=== PATIENT | male | born 1970 | race Caucasian/White ===

== ENCOUNTER 2022-03-31 08:00 | Outpatient (CLI) | payer BC, OTHER ==
--- NOTE | 2022-03-31 15:04 | XRAY Report ---
PROCEDURE: Ribs w/PA Chest LT INDICATIONS: LEFT SIDED RIB PAIN TECHNIQUE: 2 views of the right ribs were acquired, along with a single view chest. COMPARISON: None FINDINGS: Surgical changes and devices: None. Bones and chest wall: Mildly displaced fractures of the right posterior lateral second, third, and fo urth ribs. No suspicious bony lesions. Overlying soft tissues appear unremarkable. Lungs and pleura: No pleural effusions or pneumothorax. Lungs appear clear. Mediastinum: Mediastinal contours appear normal. Heart size is normal. IMPRESSION: Right rib fractures. Reviewed by: Apolonia Colmenares MD on 03/31/2022 3:02 PM PDT Approved by: Apolonia Colmenares MD on 03/31/2022 3:02 PM PDT Station ID: [id number]
== END 2022-03-31 23:59 | disposition home or self-care (01) ==
LOC: DI.S 08:00
PROVIDERS: ATTEND Physician Assistant
DX: S22.41XA Multiple fractures of ribs, right side, initial encounter for closed fracture (principal)

== ENCOUNTER 2022-08-30 08:00 | Outpatient (CLI) | payer MEDICAID, OTHER ==
--- NOTE | 2022-08-30 20:22 | XRAY Report ---
PROCEDURE: Forearm LT INDICATIONS: LEFT FOREARM INJURY TECHNIQUE: 2 views of the forearm were acquired. COMPARISON: None. FINDINGS: Bones: There is a minimally displaced fracture seen involving the distal ulna dorsally, which is best seen on the lateral image. No significant abnormality of the radius can be seen. An enthesophyte can be seen along the posterior olecranon. Soft tissues: No suspicious soft tissue calcifications or masses. IMPRESSION: Minimally displaced fracture seen involving the distal ulna. Please correlate with patient history an d focal tenderness. Reviewed by: Twin Spicer MD on 08/30/2022 7:21 PM [facility] Approved by: Twin Spicer MD on 08/30/2022 7:21 PM [facility] Station ID: [id number]
== END 2022-08-30 23:59 | disposition home or self-care (01) ==
LOC: DI.S 08:00
PROVIDERS: ATTEND Emergency Medicine
DX: S52.602A Unspecified fracture of lower end of left ulna, initial encounter for closed fracture (principal)

== ENCOUNTER 2023-01-06 07:00 | Outpatient (CLI) | payer MEDICAID ==
--- NOTE | 2023-01-06 16:30 | XRAY Report ---
PROCEDURE: Wrist 4 View LT INDICATIONS: UNSPECIFIED FRACTURE OF LEFT ULNA TECHNIQUE: 4 views of the wrist were acquired. COMPARISON: 08/30/2022 FINDINGS: Bones: There is a subacute/chronic appearing mildly displaced fracture of the ulnar styloid, which i maging is increased displacement. Scaphoid view: No scaphoid fracture. Soft tissues: No suspicious soft tissue calcifications or masses. IMPRESSION: Increased displacement of distal ulnar fracture. Reviewed by: Apolonia Colmenares MD on 01/06/2023 4:29 PM PDT Approved by: Apolonia Colmenares MD on 01/06/2023 4:29 PM PDT Station ID: [id number]
== END 2023-01-06 23:59 | disposition home or self-care (01) ==
LOC: DI.S 07:00
PROVIDERS: ATTEND Physician Assistant Medical
DX: S50.12XA Contusion of left forearm, initial encounter (principal); S52.602A Unspecified fracture of lower end of left ulna, initial encounter for closed fracture